=== PATIENT | male | born 1975 | race Hispanic/Latino ===

== ENCOUNTER 2019-08-06 19:39 | Inpatient (IN) | payer OTHER ==
[~2019-08-06 19:39] MED LIST: ISOVUE-370 76%-LOCM 1 ML ONE
--- NOTE | 2019-08-06 19:59 | CT ---
Exam: Head CT without contrast HISTORY: Headache, starting at noon. Patient passed out. Fever. Altered mental status. Unable to foll ow commands. COMPARISON: none FINDINGS: Hemorrhage: No intraparenchymal hemorrhage or extra-axial hematoma. Brain parenchyma: Cortical saleh-white matter differentiation is preserved. No mass effect or midline shift. Basilar cisterns are patent. Ventricular system: Ventricles and sulci are patent and symmetric. Calvarium: Intact. Sinuses and mastoid air cells: Adequate aeration. IMPRESSION: No acute intracranial process. Results study discussed with Dr. Ramos 08/06/2019 at 7:56 PM Code CR
[2019-08-06 20:02] LABS: #Lymphocytes 0.8 thou/uL (1.20-3.40); #Neutrophils 4.9 thou/uL (1.40-6.50); %Basophils 0.3 % (0.0-1.0); %Eosinophils 0.4 % (0.0-10.0); %Lymphocytes 12.5 % (21.0-51.0); %Monocytes 14.2 % (0.0-10.0); %Neutrophils 72.6 % (42.0-75.0); Hemoglobin 13.6 g/dL (14.0-18.0); Mean Corpuscular HGB CONC 33.9 g/dL (32.0-36.0); Mean Corpuscular Hemoglobin 27.7 pg (27.0-31.0); Mean Corpuscular Volume 81.8 fL (78.0-98.0); Mean Platelet Volume 7.6 fL (7.4-10.4); Platelet Count 232 thou/uL (130-400); RBC Distribution Width 12.3 % (11.5-14.5); Red Blood Cell (RBC) Count 4.92 mill/uL (4.70-6.10); White Blood Cell (WBC) Count 6.7 thou/uL (4.8-10.8)
[2019-08-06 20:09] LABS: INR-International Normal Ratio 1.1; PTT 27.9 SEC (22.9-36.1)
[2019-08-06 20:14] LABS: ALT (SGPT) 15 U/L (8-55); AST (SGOT) 15 U/L (5-34); Albumin 3.4 g/dL (3.5-5.0); Alkaline Phosphatase 80 U/L (40-110); Anion Gap 11 mmol/L (10-20); BUN (Urea Nitrogen) 9 mg/dL (8.9-20.6); Bilirubin, Total 0.7 mg/dL (0.2-1.2); CK (CPK) 59 U/L (30-200); Calc. Creatinine Clearance 0 mL/min (70-130); Calcium 7.1 mg/dL (7.8-10.44); Carbon Dioxide 18 mmol/L (22-29); Chloride 110 mmol/L (98-107); Estimated GFR-MDRD Greater than 90; Globulin 2.5 g/dL (2.4-3.5); Glucose 100 mg/dL (70-105); Potassium 3.1 mmol/L (3.5-5.1); Protein, Total 5.9 g/dL (6.0-8.3); Sodium 136 mmol/L (136-145)
--- NOTE | 2019-08-06 20:27 | CT ---
INDICATION: Stroke COMPARISON: None TECHNIQUE: CT angiogram of the head and neck are performed in the axial plane. Three-dimensional refo rmatted images are submitted for interpretation. FINDINGS: CTA OF THE HEAD WITH AND WITHOUT CONTRAST: POSTCONTRAST CT OF BRAIN: Pathologic enhancement: No pathologic enhancement the brain. Postcontrast soft tissue neck CT: Sinuses: Adequate aeration. Orbits: Bilateral ocular lenses are appropriately located. Both globes are intact. Retrobulbar fat is preserved. Symmetric attenuation the optic nerves and ocular rectus muscles. Salivary glands:Symmetric attenuation Thyroid gland: Unremarkable Lymph nodes: No evidence of lymphadenopathy by size criteria. Paraspinal muscles: Symmetric attenuation of the sternocleidomastoid muscles. Appropriate attenuation of the paraspinal muscles. Cervical spine:Vertebral body height is maintained. No fracture. No significant central canal stenosi s or significant neural foraminal narrowing. Limited evaluation by technique. Upper mediastinum and lung apices: Unremarkable CTA OF THE NECK WITH CONTRAST: Aorta: Appropriate enhancement and luminal diameter of the aortic arch Right carotid artery: Right carotid artery origin, common carotid artery, carotid bifurcation and int ernal carotid artery of appropriate enhancement and luminal diameter. No significant stenosis based upon NASCET criteria. Left carotid: Left carotid artery origin, common carotid artery, carotid bifurcation and internal car otid artery have appropriate enhancement and luminal diameter. No significant stenosis based upon NASCET criteria. Subclavian arteries:Patent and symmetric. Vertebral arteries:Patent throughout their course in the neck. Codominant vertebral arteries. CTA OF THE BRAIN: Intracranial internal carotid arteries:Appropriate enhancement and luminal diameter Anterior circulation: Appropriate enhancement and luminal diameter the A1 segments, proximal A2 segme nts, M1 segments and proximal MCA branches. Intracranial vertebral arteries: Patent. Bilateral PICA artery origins are unremarkable. Posterior circulation: Both vertebral arteries supply a normal caliber basilar artery. Bilateral P1 s egments are patent and symmetric. IMPRESSION: 1. No hemodynamically significant stenosis, occlusion or aneurysmal formation. Results study given to nurse practitioner Timo Spaulding 08/06/2019 at 8:24 PM Code CR
[2019-08-06] MEDS ORDERED: Ketorolac Tromethamine 30 MG/ML VIAL ONE (20:41)
[2019-08-06 20:50] LABS: Amphetamine Not Detected (NotDetected); Barbiturates Screen Not Detected (NotDetected); Benzodiazepine Screen Not Detected (NotDetected); Cocaine Metabolite Screen Not Detected (NotDetected); Medtox Control Line Valid? VALID (VALID); Medtox Reader # READER 4; Methadone Not Detected (NotDetected); Methamphetamine Not Detected (NotDetected); Opiate Screen Not Detected (NotDetected); Oxycodone Screen Not Detected (NotDetected); Phencyclidine (PCP) Not Detected (NotDetected); THC/Cannabinoid Screen Not Detected (NotDetected); Tricyclic Screen Not Detected (NotDetected)
[2019-08-06 20:53] LABS: Bilirubin Negative (Negative); Blood, Urine Negative (Negative); Clarity Clear (Clear); Glucose, Urine (Dipstick) Normal (Negative); Leukocyte Negative Leu/uL (Negative); Nitrite Negative (Negative); Protein, Urine (Dipstick) Negative (Neg-Trace); Urobilinogen Normal mg/dL (Less than 2)
[2019-08-06] MEDS ORDERED: Aspirin Chewable 81 MG TAB ONE (23:42)
[2019-08-07] MEDS ORDERED: hydrALAZINE 20 MG/ML VIAL SLOW IVP PRN (00:10)
[2019-08-07] MEDS ORDERED: Oseltamivir 75 MG CAP PO SCH ×2 (00:15→09:00)
[2019-08-07] MEDS ORDERED: cefTRIAXone\\ROCEPHIN 1 GM in Sodium Chloride 0.9% 100 ML IVPB SCH (00:30)
--- NOTE | 2019-08-07 00:31 | HP ---
CHIEF COMPLAINT: Weakness. HISTORY OF PRESENT ILLNESS: Mr. Pearson is a 44-year-old gentleman, who was seen at [facility] on August 06, 2019, after he was brought to the emergency room by [facility]. He reports having headache around noon. He describes it as global, throbbing, nonradiating, no known aggravating or relieving factors. This was followed by weakness over the left side of the face and body. He reports fluctuating level of weakness. He also reports chronic rash around his eyes and mouth that has been there for six months, not painful. He reports burning sensation in his eyes from use of cleaning chemicals. The patient reportedly spiked a temperature of 104 degrees Fahrenheit on route to the emergency room. The patient has reportedly been coughing with production of yellow sputum over the last couple of days. REVIEW OF SYSTEMS: All systems were reviewed and found to be negative except for the pertinent positives mentioned above. PAST MEDICAL HISTORY: Stroke. PAST SURGICAL HISTORY: Left arm surgery. SOCIAL HISTORY: No history of tobacco use or recreational drug use. Occasional alcohol use. FAMILY HISTORY: Significant for heart disease. ALLERGIES: NO KNOWN DRUG ALLERGIES. CURRENT MEDICATIONS: None. PHYSICAL EXAMINATION: GENERAL: On examination, Mr. Pearson is awake and alert, not in acute distress. VITAL SIGNS: Blood pressure is 113/75, pulse 79, respiratory rate 18, and oxygen saturation 98% on room air. T-max in the emergency room is 100.9 degrees Fahrenheit. EYES: No scleral icterus, no conjunctival pallor. ENT: Moist mucosal membranes. No oropharyngeal erythema or exudates. NECK: Supple, nontender. Trachea is midline. RESPIRATORY: Accessory muscles of breathing are not active. Chest wall movements are symmetric bilaterally. LUNGS: Clear to auscultation without wheeze, rhonchi, or crepitations. CARDIOVASCULAR: S1 and S2 are heard, regular. Peripheral pulses palpable. ABDOMEN: Soft, nontender. Bowel sounds are heard. NEUROLOGIC: Cranial nerves 2 through 12 are intact. Power is 3+/5 in all 4 extremities. There are no focal sensory deficits. Deep tendon reflexes are 2+. There is no nuchal tenderness and there is no evidence of meningismus. MUSCULOSKELETAL: Power in the 4 extremities as described above. SKIN: He has a rash around his eyes and mouth. LYMPHATIC: No cervical lymphadenopathy. PSYCHIATRIC: Normal mood, normal affect. The patient is oriented to person, place, and time. LABORATORY DATA: Mr. Pearson's labs and investigations were reviewed. 12-lead electrocardiogram showed sinus tachycardia, no ST changes to suggest an acute coronary syndrome. Noncontrast CT scan of the brain did not show any acute intracranial abnormality. CT angiogram of [place] of [place] and neck did not show any hemodynamically significant stenosis. He has normal white count, normocytic anemia with hemoglobin 13.6, normal platelet count, INR 1.1, decreased potassium of 3.1, unremarkable LFTs, normal troponin I, and normal CK. Lactic acid level is normal. Urinalysis is negative. Urine drug screen is negative. ASSESSMENT AND PLAN: Mr. Pearson is a pleasant 44-year-old gentleman, who was seen at [facility] on August 06, 2019. His problem list includes: 1. Weakness: Etiology is unclear. He will be admitted to the hospital for further workup including MRI of the brain, 2D echocardiogram, and Neurology consult. 2. Cough: The patient had negative influenza screen. He does report cough that is productive of yellow sputum. I will obtain a chest x-ray and start him on empiric antibiotics. I will also check respiratory PCR panel and start him on Tamiflu empirically. 3. Hypokalemia: Replace potassium. Many thanks for allowing me to participate in Mr. Pearson's care. Please feel free to contact me with any questions or concerns. LEVEL OF RISK: Moderate. LEVEL OF COMPLEXITY: Moderate. Job ID: [id number]
[2019-08-07] MEDS ORDERED: Ondansetron ODT 4 MG TAB PO PRN (01:05)
[2019-08-07] MEDS: Azithromycin 500 MG in Sodium Chloride 0.9% 250 ML 250 ML IVPB SCH (01:43)
[2019-08-07] MEDS: Ketorolac Tromethamine 30 MG/ML VIAL IVP PRN ×2 (01:45→23:07)
[2019-08-07] MEDS: Ondansetron PF 4 MG/2 ML Vial IVP PRN ×2 (01:46→09:01)
[2019-08-07 05:03] LABS: Cardiac Risk 2.8 (Less than 4.5)
[2019-08-07] MEDS: Sodium Chloride 0.9% 1,000 ML IV SCH ×3 (05:11→17:00)
--- NOTE | 2019-08-07 07:36 | RAD ---
EXAM: Single view of the chest HISTORY: Cough COMPARISON: None FINDINGS: Single view of the chest shows a normal sized cardiomediastinal silhouette. There is no sy dence of consolidation, mass, or pleural effusion. The bones are unremarkable. IMPRESSION: No evidence of acute cardiopulmonary disease
[2019-08-07] MEDS: Enoxaparin Sodium 40 MG/0.4 ML SYRINGE SC SCH (08:32)
[2019-08-07] MEDS: Aspirin 325 mg Enteric Coated Tablet PO SCH (08:32)
[2019-08-07] MEDS: Acetaminophen 325 MG TAB PO PRN ×3 (08:32→21:50)
[2019-08-07] MEDS ORDERED: FLU VACC QS2019-20(6MOS UP)/PF 60 MCG/0.5 ML SYRINGE IM ONE (09:00)
[2019-08-07 10:46] VITALS: BMI 24.7
--- NOTE | 2019-08-07 12:45 | MRI ---
EXAM: MRI of the brain without contrast HISTORY: Headache and stroke COMPARISON: None TECHNIQUE: Multiplanar multisequence MR images were obtained of the brain without IV contrast. FINDINGS: The brain demonstrates normal signal intensity on all obtained sequences. No restricted diffusion. No hydronephrosis. No extra-axial fluid collection or intracranial hemorrhage. The expected flow voids are present. Corpus callosum, pituitary, and craniocervical junction are within normal limits. The calvarium and overlying soft tissues are unremarkable. Mild mucosal thickening is seen in the left maxillary sinus. The other paranasal sinuses and mastoid air cells are well aerated. IMPRESSION: No evidence of acute intracranial abnormality.
--- NOTE | 2019-08-07 15:12 | PDOC.HOSPP ---
- Subjective Encounter Date: 08/07/19 Encounter Time: 15:00 Subjective: f/u for headache, eye burning and redness and myalgias. States no new exposures , sx x 24-48h. + fever, chills. - Objective Vital Signs & Weight: Vital Signs (12 hours) Temp Pulse Pulse Pulse Resp BP BP 08/07/19 11:43 100 F H 109 H 18 08/07/19 11:27 115 H 92 115/71 127/77 08/07/19 07:50 98.8 F 111 H 20 08/07/19 04:00 98.1 F 71 16 BP Pulse Ox 08/07/19 11:43 115/75 98 08/07/19 11:27 08/07/19 07:50 132/84 97 08/07/19 04:00 107/68 99 Weight Admit Weight 172 lb 3.2 oz Weight 172 lb 3.2 oz I&O: 08/06/19 08/07/19 08/08/19 06:59 06:59 06:59 Intake Total 1080 Output Total 1550 Balance -470 Result Diagrams: 08/06/19 19:52 08/06/19 19:52 Additional Labs: Accuchecks 08/06/19 19:52 POC Glucose 95 Microbiology 08/06/19 20:37 Nasal swab Influenza Types A,B Direct EIA - Final 08/06/19 20:20 Urine cabrera catheter Urine Culture - Preliminary NO GROWTH AT 12 HOURS 08/06/19 20:09 Venous blood - Right Arm Blood Culture - Preliminary Specimen has been received and culture in progress. No Growth to date. 08/06/19 20:09 Venous blood - Left Arm Blood Culture - Preliminary Specimen has been received and culture in progress. No Growth to date. Laboratory Tests 08/06/19 20:45 Lactic Acid 1.4 Radiology Reviewed by me: Yes (MRI brain - neg; Echo - EF 60%, neg ) EKG Reviewed by me: Yes (Tele - SR) Hospitalist ROS - Medication Medications: Active Medications Generic Name Dose Route Start Last Admin Trade Name Freq PRN Reason Stop Dose Admin Acetaminophen 650 mg 08/07/19 04:21 08/07/19 13:35 Tylenol PO 650 mg Q4H PRN Administration MILD PAIN/FEVER Aspirin 325 mg 08/07/19 09:00 08/07/19 08:32 Ecotrin PO 325 mg DAILY SIMA Administration Enoxaparin Sodium 40 mg 08/07/19 09:00 08/07/19 08:32 Lovenox SC 40 mg 0900 SIMA Administration Azithromycin 500 mg/ Sodium 250 mls @ 250 mls/hr 08/07/19 01:00 08/07/19 01: 43 Chloride IVPB 250 mls Q24HR SIMA Administration Ketorolac Tromethamine 15 mg 08/07/19 01:05 08/07/19 01:45 Toradol IVP 08/12/19 01:06 15 mg Q6H PRN Administration Pain Ondansetron HCl 4 mg 08/07/19 01:05 08/07/19 09:01 Zofran IVP 4 mg Q6H PRN Administration Nausea/Vomiting Sodium Chloride 10 ml 08/07/19 00:10 08/07/19 08:33 Flush - Normal Saline IVF 10 ml PRN PRN Administration Saline Flush - Exam General Appearance: awake alert General - other findings: mild distress Eye: PERRL, anicteric sclera Eye - other findings: Periorbital edema/erythema, maculopapular eruption R>L ENT: normocephalic atraumatic, no oropharyngeal lesions Neck: supple, symmetric, no JVD, no thyromegaly, no lymphadenopathy Heart: RRR, no murmur, no gallops, no rubs, normal peripheral pulses Respiratory: CTAB, no wheezes, no rales, no ronchi, normal chest expansion Gastrointestinal: soft, non-tender, non-distended, normal bowel sounds, no palpable masses Extremities: no cyanosis, no clubbing, no edema Skin: normal turgor Skin - other findings: see above Neurological: cranial nerve grossly intact, no new deficit Musculoskeletal: normal tone, normal strength Psychiatric: normal affect, A&O x 3 Hosp A/P (1) Viral syndrome Status: Acute Plan: Suspected, supportive mgmt, Influenza panel negative (2) Blepharitis of both eyes Code(s): H01.003 - UNSPECIFIED BLEPHARITIS RIGHT EYE, UNSPECIFIED EYELID; H01.006 - UNSPECIFIED BLEPHARITIS LEFT EYE, UNSPECIFIED EYELID Status: Acute Plan: Etiology unclear, trial Hydrocortisone 1% AAA BID, Refresh Natural Tears TID (3) Generalized weakness Code(s): R53.1 - WEAKNESS Status: Acute Plan: Likely due to #1, supportive mgmt (4) Hypokalemia Code(s): E87.6 - HYPOKALEMIA Status: Acute Plan: KCL supplementation, repeat K+ level - Plan continue antibiotics, social media designer, out of bed/ambulate, DVT proph w/SCDs Stable currently Start Hydrocortisone 1% AAA BID Start Refresh Natural Tears Continue Zithromax IVFs another 24h Likely d/c in 24h
[2019-08-07] MEDS ORDERED: Potassium Chloride 20 MEQ TAB PO SCH (15:30)
[2019-08-07] MEDS: Polyvinyl Alcohol 1.4%/Povidone 0.6% Opth Drops EA EYE SCH ×2 (16:12→23:08)
[2019-08-07] MEDS: Hydrocortisone 1% Cream 30 GM TUBE TOP SCH ×2 (16:12→21:53)
[2019-08-07] MEDS: Atorvastatin Calcium 40 MG TAB PO SCH (21:51)
[2019-08-08 00:11] LABS: #Lymphocytes 1.3 thou/uL (1.20-3.40); #Monocytes 0.7 thou/uL (0.11-0.59); #Neutrophils 3.3 thou/uL (1.40-6.50); %Basophils 0.2 % (0.0-1.0); %Eosinophils 0.8 % (0.0-10.0); %Lymphocytes 23.7 % (21.0-51.0); %Monocytes 13.5 % (0.0-10.0); %Neutrophils 61.8 % (42.0-75.0); Hemoglobin 13.6 g/dL (14.0-18.0); Mean Corpuscular HGB CONC 33.2 g/dL (32.0-36.0); Mean Corpuscular Hemoglobin 27.6 pg (27.0-31.0); Mean Corpuscular Volume 83.2 fL (78.0-98.0); Mean Platelet Volume 7.7 fL (7.4-10.4); Platelet Count 223 thou/uL (130-400); RBC Distribution Width 12.6 % (11.5-14.5); White Blood Cell (WBC) Count 5.4 thou/uL (4.8-10.8)
[2019-08-08 00:27] LABS: Lactic Acid 0.6 mmol/L (0.5-2.2)
[2019-08-08 00:30] LABS: Anion Gap 12 mmol/L (10-20); Carbon Dioxide 21 mmol/L (22-29)
[2019-08-08] MEDS: Azithromycin 500 MG in Sodium Chloride 0.9% 250 ML 250 ML IVPB SCH (00:36)
[2019-08-08 00:42] LABS: BUN (Urea Nitrogen) 8 mg/dL (8.9-20.6); Calc. Creatinine Clearance 111 mL/min (70-130); Chloride 113 mmol/L (98-107); Estimated GFR-MDRD 87; Glucose 105 mg/dL (70-105); Potassium 3.9 mmol/L (3.5-5.1); Sodium 142 mmol/L (136-145)
[2019-08-08] MEDS: Acetaminophen 325 MG TAB PO PRN ×4 (05:00→18:27)
[2019-08-08] MEDS: Sodium Chloride 0.9% 1,000 ML IV SCH ×4 (05:01→21:50)
[2019-08-08 05:07] LABS: #Lymphocytes 1.9 thou/uL (1.20-3.40); #Monocytes 0.7 thou/uL (0.11-0.59); #Neutrophils 5.8 thou/uL (1.40-6.50); %Basophils 0.5 % (0.0-1.0); %Eosinophils 0.5 % (0.0-10.0); %Lymphocytes 22.8 % (21.0-51.0); %Monocytes 7.8 % (0.0-10.0); %Neutrophils 68.4 % (42.0-75.0); Hemoglobin 14.7 g/dL (14.0-18.0); Mean Corpuscular HGB CONC 31.6 g/dL (32.0-36.0); Mean Corpuscular Hemoglobin 26.4 pg (27.0-31.0); Mean Corpuscular Volume 83.6 fL (78.0-98.0); Platelet Count 236 thou/uL (130-400); RBC Distribution Width 12.7 % (11.5-14.5); Red Blood Cell (RBC) Count 5.56 mill/uL (4.70-6.10); White Blood Cell (WBC) Count 8.5 thou/uL (4.8-10.8)
[2019-08-08 05:20] LABS: Anion Gap 12 mmol/L (10-20); BUN (Urea Nitrogen) 7 mg/dL (8.9-20.6); Calc. Creatinine Clearance 103 mL/min (70-130); Calcium 8.5 mg/dL (7.8-10.44); Carbon Dioxide 23 mmol/L (22-29); Chloride 111 mmol/L (98-107); Estimated GFR-MDRD 80; Glucose 95 mg/dL (70-105); Potassium 3.9 mmol/L (3.5-5.1); Sodium 142 mmol/L (136-145)
[2019-08-08] MEDS: Enoxaparin Sodium 40 MG/0.4 ML SYRINGE SC SCH (09:12)
[2019-08-08] MEDS: Aspirin 325 mg Enteric Coated Tablet PO SCH (09:13)
[2019-08-08] MEDS: Hydrocortisone 1% Cream 30 GM TUBE TOP SCH ×2 (09:13→21:51)
[2019-08-08] MEDS: Oseltamivir 75 MG CAP PO SCH ×2 (09:13→21:46)
[2019-08-08] MEDS: Polyvinyl Alcohol 1.4%/Povidone 0.6% Opth Drops EA EYE SCH ×3 (09:13→21:46)
[2019-08-08] MEDS: Ketorolac Tromethamine 30 MG/ML VIAL IVP PRN ×3 (09:30→21:46)
--- NOTE | 2019-08-08 10:10 | PDOC.HOSPP ---
- Subjective Encounter Date: 08/08/19 Encounter Time: 10:05 Subjective: f/u for viral illness confirmed to be Influenza A with NAAT viral panel. Tx with Tamiflu/Toradol and supportive mgmt. Still with some headache and congestion. - Objective Vital Signs & Weight: Vital Signs (12 hours) Temp Pulse Resp BP Pulse Ox 08/08/19 07:17 100.3 F H 94 14 123/76 98 08/08/19 04:14 99.8 F H 83 18 126/83 99 08/07/19 23:00 100.4 F H 87 22 H 122/77 97 Weight Admit Weight 172 lb 3.2 oz Weight 172 lb 3.2 oz I&O: 08/07/19 08/08/19 08/09/19 06:59 06:59 06:59 Intake Total 1080 3427 Output Total 1550 Balance -470 3427 Result Diagrams: 08/08/19 04:48 08/08/19 04:48 Additional Labs: Microbiology 08/06/19 20:37 Nasal swab Influenza Types A,B Direct EIA - Final 08/06/19 20:20 Urine cabrera catheter Urine Culture - Preliminary NO GROWTH AT 12 HOURS 08/06/19 20:09 Venous blood - Right Arm Blood Culture - Preliminary Specimen has been received and culture in progress. No Growth to date. 08/06/19 20:09 Venous blood - Left Arm Blood Culture - Preliminary Specimen has been received and culture in progress. No Growth to date. Laboratory Tests 08/06/19 20:45 Lactic Acid 1.4 Radiology Reviewed by me: Yes (Echo - EF 55-60%, no thrombus) EKG Reviewed by me: Yes (Tele - SR) Hospitalist ROS - Medication Medications: Active Medications Generic Name Dose Route Start Last Admin Trade Name Freq PRN Reason Stop Dose Admin Acetaminophen 650 mg 08/07/19 04:21 08/08/19 09:31 Tylenol PO 650 mg Q4H PRN Administration MILD PAIN/FEVER Aspirin 325 mg 08/07/19 09:00 08/08/19 09:13 Ecotrin PO 325 mg DAILY SIMA Administration Atorvastatin Calcium 40 mg 08/07/19 21:00 08/07/19 21:51 Lipitor PO 40 mg HS SIMA Administration Enoxaparin Sodium 40 mg 08/07/19 09:00 08/08/19 09:12 Lovenox SC 40 mg 0900 SIMA Administration Hydrocortisone/Aloe 0 gm 08/07/19 16:00 08/08/19 09:13 Hydrocortisone 1% Cream TOP 1 applic BID SIMA Administration Azithromycin 500 mg/ Sodium 250 mls @ 250 mls/hr 08/07/19 01:00 08/08/19 00: 36 Chloride IVPB 250 mls Q24HR SIMA Administration Sodium Chloride 1,000 mls @ 100 mls/hr 08/07/19 14:54 08/08/19 05:01 Normal Saline 0.9% IV 1,000 mls .Q10H SIMA Administration Ondansetron HCl 4 mg 08/07/19 01:05 08/07/19 09:01 Zofran IVP 4 mg Q6H PRN Administration Nausea/Vomiting Oseltamivir Phosphate 75 mg 08/08/19 09:00 08/08/19 09:13 Tamiflu PO 08/12/19 21:01 75 mg BID SIMA Administration Polyvinyl Alcohol/Povidone 0 each 08/07/19 15:00 08/08/19 09:13 Refresh Classic Eye Drops EA EYE 1 each TID SIMA Administration Sodium Chloride 10 ml 08/07/19 00:10 08/07/19 08:33 Flush - Normal Saline IVF 10 ml PRN PRN Administration Saline Flush - Exam General Appearance: NAD, awake alert Eye: PERRL, anicteric sclera Eye - other findings: periorbital erythema noted ENT: normocephalic atraumatic, no oropharyngeal lesions Neck: supple, symmetric, no JVD, no thyromegaly, no lymphadenopathy Heart: RRR, no murmur, no gallops, no rubs, normal peripheral pulses Respiratory: CTAB, no wheezes, no rales, no ronchi, normal chest expansion Gastrointestinal: soft, non-tender, non-distended, normal bowel sounds, no palpable masses Extremities: no cyanosis, no clubbing, no edema Skin: normal turgor Neurological: cranial nerve grossly intact, no new deficit Musculoskeletal: normal tone, normal strength Psychiatric: normal affect, A&O x 3 Hosp A/P (1) Influenza A Code(s): J10.1 - FLU DUE TO OTH IDENT INFLUENZA VIRUS W OTH RESP MANIFEST Status: Acute Plan: Continue Tamiflu, Toradol, IVF's, respiratory isolation (2) Blepharitis of both eyes Code(s): H01.003 - UNSPECIFIED BLEPHARITIS RIGHT EYE, UNSPECIFIED EYELID; H01.006 - UNSPECIFIED BLEPHARITIS LEFT EYE, UNSPECIFIED EYELID Status: Acute Plan: Likely due to #1, continue supportive mgmt, Refresh eye drops (3) Generalized weakness Code(s): R53.1 - WEAKNESS Status: Acute Plan: Secondary to #1, supportive mgmt, IVF's (4) Hypokalemia Code(s): E87.6 - HYPOKALEMIA Status: Acute Plan: Resolved - Plan out of bed/ambulate, DVT proph w/SCDs Stable currently Continue Tamiflu 75mg BID Start Hydrocortisone 1% AAA BID Start Refresh Natural Tears Continue Zithromax IVFs another 24h Convert to inpt status Transfer to medical floor
[2019-08-08] MEDS: Ondansetron PF 4 MG/2 ML Vial IVP PRN (14:54)
[2019-08-08] MEDS: Atorvastatin Calcium 40 MG TAB PO SCH (21:45)
[2019-08-09] MEDS: Azithromycin 500 MG in Sodium Chloride 0.9% 250 ML 250 ML IVPB SCH (01:10)
[2019-08-09] MEDS: Acetaminophen 325 MG TAB PO PRN ×3 (01:10→20:35)
[2019-08-09 05:53] LABS: #Lymphocytes 1.8 thou/uL (1.20-3.40); #Monocytes 1.2 thou/uL (0.11-0.59); #Neutrophils 12.8 thou/uL (1.40-6.50); %Eosinophils 0.1 % (0.0-10.0); %Lymphocytes 11.1 % (21.0-51.0); %Monocytes 7.4 % (0.0-10.0); %Neutrophils 81.4 % (42.0-75.0); Hemoglobin 13.5 g/dL (14.0-18.0); Mean Corpuscular HGB CONC 32.8 g/dL (32.0-36.0); Mean Corpuscular Hemoglobin 27.1 pg (27.0-31.0); Mean Corpuscular Volume 82.4 fL (78.0-98.0); Platelet Count 209 thou/uL (130-400); RBC Distribution Width 12.4 % (11.5-14.5); Red Blood Cell (RBC) Count 4.98 mill/uL (4.70-6.10); White Blood Cell (WBC) Count 15.8 thou/uL (4.8-10.8)
[2019-08-09] MEDS: Polyvinyl Alcohol 1.4%/Povidone 0.6% Opth Drops EA EYE SCH ×3 (08:05→21:26)
[2019-08-09] MEDS: Oseltamivir 75 MG CAP PO SCH ×2 (08:05→21:25)
[2019-08-09] MEDS: Enoxaparin Sodium 40 MG/0.4 ML SYRINGE SC SCH (08:05)
[2019-08-09] MEDS: Aspirin 325 mg Enteric Coated Tablet PO SCH (08:05)
[2019-08-09] MEDS: Ketorolac Tromethamine 30 MG/ML VIAL IVP PRN ×3 (08:06→21:27)
[2019-08-09] MEDS: Hydrocortisone 1% Cream 30 GM TUBE TOP SCH ×2 (08:07→21:25)
[2019-08-09] MEDS: Guaifenesin DM 100-10/5 ML UDCUP PO PRN ×2 (12:12→17:37)
[2019-08-09] MEDS: Sodium Chloride 0.9% 1,000 ML IV SCH ×3 (13:05→20:51)
[2019-08-09] MEDS ORDERED: Calcium Carbonate 500 MG ChewTAB PO PRN (14:57)
[2019-08-09] MEDS: Mag-Al 1200 mg/1200 mg/30 ML UDCUP PO PRN ×2 (15:16→22:05)
[2019-08-09] MEDS: Atorvastatin Calcium 40 MG TAB PO SCH (21:24)
[2019-08-09] MEDS: Erythromycin Base 0.5% Oint 1 GM TUBE EA EYE SCH (21:24)
[2019-08-10] MEDS: Azithromycin 500 MG in Sodium Chloride 0.9% 250 ML 250 ML IVPB SCH (00:20)
[2019-08-10] MEDS: Sodium Chloride 0.9% 1,000 ML IV SCH (00:24)
--- NOTE | 2019-08-10 07:07 | PDOC.HOSPP ---
- Subjective Encounter Date: 08/09/19 Encounter Time: 14:00 Subjective: Patient seen and examined for gen weakness. Feeling slightly better. Some nausea. No new complaints. No overnight events - Objective Vital Signs & Weight: Vital Signs (12 hours) Temp Pulse Resp BP BP Pulse Ox 08/10/19 04:50 98 F 86 16 117/74 99 08/10/19 00:00 98.3 F 98 18 111/69 95 08/09/19 21:00 99.1 F 08/09/19 20:00 95 08/09/19 19:30 100.2 F H 102 H 18 124/79 97 Weight Admit Weight 172 lb 3.2 oz Weight 172 lb 3.2 oz I&O: 08/09/19 08/10/19 08/11/19 06:59 06:59 06:59 Intake Total 4631 3050 Balance 4631 3050 Result Diagrams: 08/09/19 05:23 08/08/19 04:48 Radiology Reviewed by me: Yes (MRI - negative) Hospitalist ROS - Review of Systems Respiratory: denies: cough, dry, shortness of breath, hemoptysis, SOB with excertion, pleuritic pain, sputum, wheezing, other Cardiovascular: denies: chest pain, palpitations, orthopnea, paroxysmal noc. dyspnea, edema, light headedness, other - Medication Medications: Active Medications Generic Name Dose Route Start Last Admin Trade Name Freq PRN Reason Stop Dose Admin Acetaminophen 650 mg 08/07/19 04:21 08/09/19 20:35 Tylenol PO 650 mg Q4H PRN Administration MILD PAIN/FEVER Al Hydroxide/Mg Hydroxide 30 ml 08/09/19 14:57 08/09/19 22:05 Maalox PO 30 ml Q6H PRN Administration Heartburn or Indigestion Aspirin 325 mg 08/07/19 09:00 08/09/19 08:05 Ecotrin PO 325 mg DAILY SIMA Administration Atorvastatin Calcium 40 mg 08/07/19 21:00 08/09/19 21:24 Lipitor PO 40 mg HS SIMA Administration Enoxaparin Sodium 40 mg 08/07/19 09:00 08/09/19 08:05 Lovenox SC 40 mg 0900 SIMA Administration Erythromycin 0 gm 08/09/19 21:00 08/09/19 21:24 Erythromycin Base 0.5% Oint EA EYE 1 applic BID SIMA Administration Guaifenesin/Dextromethorphan 15 ml 08/08/19 10:29 08/09/19 17:37 Robitussin Dm PO 15 ml Q4H PRN Administration Cough Hydrocortisone/Aloe 0 gm 08/07/19 16:00 08/09/19 21:25 Hydrocortisone 1% Cream TOP 1 applic BID SIMA Administration Azithromycin 500 mg/ Sodium 250 mls @ 250 mls/hr 08/07/19 01:00 08/10/19 00: 20 Chloride IVPB 250 mls Q24HR SIMA Administration Sodium Chloride 1,000 mls @ 50 mls/hr 08/09/19 20:38 08/10/19 00:24 Normal Saline 0.9% IV 1,000 mls .Q20H SIMA Administration Ketorolac Tromethamine 30 mg 08/08/19 09:44 08/09/19 21:27 Toradol IVP 08/12/19 01:06 30 mg Q6H PRN Administration Pain Ondansetron HCl 4 mg 08/07/19 01:05 08/08/19 14:54 Zofran IVP 4 mg Q6H PRN Administration Nausea/Vomiting Oseltamivir Phosphate 75 mg 08/08/19 09:00 08/09/19 21:25 Tamiflu PO 08/12/19 21:01 75 mg BID SIMA Administration Polyvinyl Alcohol/Povidone 0 each 08/07/19 15:00 08/09/19 21:26 Refresh Classic Eye Drops EA EYE 1 each TID SIMA Administration Sodium Chloride 10 ml 08/07/19 00:10 08/09/19 08:06 Flush - Normal Saline IVF 10 ml PRN PRN Administration Saline Flush - Exam General Appearance: NAD Heart: RRR, no gallops Respiratory: no wheezes, no ronchi Gastrointestinal: non-distended, normal bowel sounds, no guarding, no rigidity Extremities: no cyanosis, no clubbing Hosp A/P - Plan DVT proph w/SCDs Gen weakness/Sepsis due to Influenza A Blepharitis Hypokalemia Nausea PLAN: Cont Tamiflu Cont Antiemetics PRN Reduce IVF Add erythromycin eye ointment DC in 24 hr if stable
[2019-08-10] MEDS: Ketorolac Tromethamine 30 MG/ML VIAL IVP PRN (07:11)
[2019-08-10] MEDS: Enoxaparin Sodium 40 MG/0.4 ML SYRINGE SC SCH (08:08)
[2019-08-10] MEDS: Oseltamivir 75 MG CAP PO SCH (08:08)
[2019-08-10] MEDS: Ondansetron PF 4 MG/2 ML Vial IVP PRN (08:08)
[2019-08-10] MEDS: Aspirin 325 mg Enteric Coated Tablet PO SCH (08:08)
[2019-08-10] MEDS: Erythromycin Base 0.5% Oint 1 GM TUBE EA EYE SCH (08:12)
[2019-08-10] MEDS: Hydrocortisone 1% Cream 30 GM TUBE TOP SCH (08:14)
[2019-08-10] MEDS: Polyvinyl Alcohol 1.4%/Povidone 0.6% Opth Drops EA EYE SCH (08:57)
[2019-08-10] MEDS: Acetaminophen 325 MG TAB PO PRN (10:19)
[2019-08-10 11:17] VITALS: BP 125/80; TEMP 99.3
--- NOTE | 2019-08-10 21:35 | DIS ---
DATE OF ADMISSION: 08/06/2019 DATE OF DISCHARGE: 08/10/2019 DISCHARGE DISPOSITION: The patient is an inmate. The patient will require isolation for now at the unit. The patient was seen and examined on the day of discharge. Denies any new complaints. No fevers or chills reported. BRIEF HOSPITAL COURSE: The patient is a 44-year-old male from [facility], who was brought into the emergency room with generalized weakness. The patient was monitored in the stroke unit. His stroke workup, however, was negative. MRI of the brain was negative for acute CVA. Echocardiogram showed ejection fraction of 55% to 60% with mild tricuspid regurgitation. A CT angiogram of the head and neck was negative. His workup was consistent with influenza A on the respiratory viral panel. Blood culture and urine cultures were negative. His influenza screen was negative as well. He showed good improvement with Tamiflu as well as symptomatic treatment. He also was diagnosed with blepharitis that significantly improved with erythromycin eye ointment. He will continue Tamiflu for another 5 dose as well as erythromycin eye ointment. He appears stable for discharge. FINAL DIAGNOSES: 1. Generalized weakness with sepsis secondary to influenza A. 2. Blepharitis, improving with erythromycin eye ointment. 3. Hypokalemia, resolved. 4. Nausea, improved. 5. Metabolic acidosis, resolved. 6. Dehydration on admission, resolved. Job ID: [id number]
--- NOTE | 2019-08-12 21:05 | PQF ---
NIKOLAS RODRIGUEZ MALIK MD [id number] CLINICAL DOCUMENTATION CLARIFICATION FORM: POST DISCHARGE Addendum to original discharge summary date: ____ Late entry note date: __ DATE: 08/12/2019 ATTN: Raymond Pedraza Please exercise your independent, professional judgment in responding to the clarification form. Clinical indicators are provided on the bottom of this form for your review Diagnosis: Sepsis Present on Admission (POA): [x ] Yes [ ] No [ ] Unable to determine Coding guidelines require hospitals to identify whether a diagnosis was present on admission (POA) or not. To accurately assign the appropriate POA indicator, this information must be clearly documented within the medical record. CLINICAL INDICATORS - SIGNS / SYMPTOMS / LABS H&P p1 08/06 Dr Winchester He reports having headache around noon. He describes it as global, throbbing, nonradiating, no known aggravating or relieving factors. H&P p1 08/06 Dr Winchester followed by weakness over the left side of the face and body'. He reports fluctuating level of weakness H&P p2 08/06 Dr Winchester he does report cough that is productive of yellow sputum Laboratory Hematology p1 08/09 WBC 15.8 RISK FACTORS: Hospitalist PN p4 08/07 Viral syndrome Hospitalist PN p4 08/07 Blepharitis of both eyes Discharge summary p1 08/10 Generalized weakness with Sepsis secondary to Influenza A Discharge summary p1 08/10 Metabolic Acidosis TREATMENT: SEP 15 Tamiflu SEP 15 IV Azithromycin SEP 15 IV Ceftriaxone H&P p2 08/06 - Obtain Chest X-ray (This form is maintained as a part of the permanent medical record) 2014 [employer] All Rights Reserved [email or web address]
== END 2019-08-10 15:25 | DRG 872 ==
LOC: ERS 19:39 → EDBD 19:39 → EEVIPCON 19:39 → 2SE 23:44 → OBSVTOIN 23:44 → T4-A 08-08 21:24
PROVIDERS: ADMIT Internal Medicine; ATTEND Internal Medicine
PROC: 3E0234Z Introduction of Serum, Toxoid and Vaccine into Muscle, Percutaneous Approach (ICD-10-PCS; principal; 2019-08-07)
PROC: 3E02340 Introduction of Influenza Vaccine into Muscle, Percutaneous Approach (ICD-10-PCS; 2019-08-07)
DX: A41.89 Other specified sepsis (principal); E87.2 Acidosis; J10.1 Influenza due to other identified influenza virus with other respiratory manifestations; E87.6 Hypokalemia; E86.0 Dehydration; H01.006 Unspecified blepharitis left eye, unspecified eyelid; H01.003 Unspecified blepharitis right eye, unspecified eyelid; Z23 Encounter for immunization; Z86.73 Personal history of transient ischemic attack (TIA), and cerebral infarction without residual deficits
CPT/HCPCS: 36415; 36416; 51702; 70450; 70496; 70498; 70551; 71045; 80048; 80053; 80061; 80306; 81003; 82550; 83605; 84484; 85025; 85610; 85730; 86850; 86900; 86901; 87040; 87086; 87633; 87804; 90471; 90686; 90732; 93005; 93306; 94760; 96361; 96374; G0008; G0009; J0456; J0696; J1650; J1885; J2405; J2997; J3490; J7050; Q9966